=== PATIENT | female | born 1990 | race Caucasian/White ===

== ENCOUNTER 2020-07-28 08:23 | Outpatient (NON) | payer OTHER, SELFPAY ==
[2020-07-28 18:16] LABS: SARS-CoV-2 RNA PCR Positive
== END 2020-07-28 08:24 ==
PROVIDERS: PCP Family Medicine; Visit Provider Family Medicine
DX: U07.1 COVID-19 (principal)
CPT/HCPCS: 87635; C9803; U0003

== ENCOUNTER 2020-09-05 12:39 | Outpatient (CLI) | payer OTHER, SELFPAY ==
--- NOTE | ~2020-09-05 | US_ITS ---
EXAMINATION: US breast RT limited HISTORY: Palpable lump of the lower outer right breast TECHNIQUE: Limited right breast ultrasound was performed. FINDINGS: There is a 3 mm cyst at the 8:00 location near the nipple. No suspicious cystic or solid ma ss is identified. IMPRESSION: No suspicious cystic or solid mass identified. Further evaluation at this time should be based on cli nical assessment. Continued follow-up physical examination is recommended. BI-RADS Category 2: Benign finding(s). Reviewed, dictated and finalized at location A. ER OPERATOR IMPRESSION: No suspicious cystic or solid mass identified. Further evaluation at this time should be based on clinical assessment. Continued follow-up physical examinatio n is recommended. BI-RADS Category 2: Benign finding(s).
== END 2020-09-05 12:40 | disposition home or self-care (01) ==
PROVIDERS: PCP Family Medicine; Visit Provider Obstetrics & Gynecology
DX: N63.10 Unspecified lump in the right breast, unspecified quadrant (principal)
CPT/HCPCS: 76642